=== PATIENT | male | born 1955 | race Caucasian/White ===

== ENCOUNTER 2018-01-19 17:39 | Observation (INO) | payer OTHER ==
[2018-01-19] MEDS ORDERED: ONDANSETRON 4 MG/2 ML VIAL IVP ONE (17:59)
[2018-01-19] MEDS ORDERED: MECLIZINE HCL 25 MG TAB PO ONE (17:59)
[2018-01-19] MEDS ORDERED: NS 500 ML IV ONE (17:59)
--- NOTE | 2018-01-19 18:00 | CPEKG ---
Heart Rate: 61 RR Interval: 984 P-R Interval: 156 QRSD Interval: 100 QT Interval: 404 QTC Interval: 407 P Gila: 56 QRS Gila: -9 T Wave Gila: 41 EKG Severity - BORDERLINE ECG - EKG Impression: SINUS RHYTHM EKG Impression: PROBABLE LEFT ATRIAL ABNORMALITY Electronically Signed By: Oneil Choi 19-Jan-2018 18:58:14
[2018-01-19 18:14] LABS: PLATELET COUNT 261 10^3/uL (150-400)
--- NOTE | 2018-01-19 18:15 | EDPHY ---
H & P Time Seen by Provider: 01/19/18 17:42 HPI/ROS: HPI Vertigo. 62-year-old male by private vehicle with his . This patient reports onset of vertigo which she describes as difficulty walking, motion where there is no motion, worse with head movement at times but not always since 9:00 a.m. This morning. No history of fall or trauma. No other complaints. ROS: Constitutional: No fever, no chills. As above. Eyes: No discharge. No changes in vision. ENT: No sore throat. No nasal congestion or rhinorrhea. No tinnitus. No hearing changes. Respiratory: No cough. No shortness of breath. Cardiac: No chest pain, no palpitations. Gastrointestinal: No abdominal pain, no vomiting, no diarrhea. Genitourinary: No hematuria. No dysuria or increased frequency with urination. Musculoskeletal: No back pain. No neck pain. No myalgias or arthralgias. Skin: No rashes. Neurological: No headache. No focal weakness or altered sensation. As above. Past medical history: Denies any significant past medical history. No prescription medications. Social history: Nonsmoker. No alcohol. Here with family. Denies drugs. Physical Exam: General Appearance: Alert, no distress. This patient is responding to questions appropriately and in full sentences. This patient appears well- hydrated and well-nourished. Eyes: Pupils equal and round no pallor or injection. No lid edema, erythema or injection. Uni directional horizontal nystagmus noted. ENT, Mouth: Mucous membranes are moist. The pharyngeal tissues are unremarkable. No edema or swelling. No asymmetry suggestive of abscess. No erythema or exudates. No tongue lacerations or abrasions. External auditory canals and tympanic membranes are normal bilaterally on speculum exam. Respiratory: There are no retractions, lungs are clear to auscultation with good air movement bilaterally. Cardiovascular: Regular rate and rhythm. No murmur. Gastrointestinal: Abdomen is soft and nontender, no masses, bowel sounds normal. No focal tenderness at McBurney's point. No Romo sign. Neurological: Motor sensory function is grossly intact. Cranial nerves are normal. Unsteady gait, he this to the right. Indeterminate head impulse test testing. His symptoms do not worsen significantly with head movement. Skin: Warm and dry, no rashes. Musculoskeletal: Neck is supple and nontender. No pain on flexion of his neck. Extremities are symmetrical. All joints range without pain or impingement. Psychiatric: No agitation. No depression. Database: EKG: EKG time is 5:58 p.m.; EKG shows a narrow complex normal sinus rhythm with a ventricular rate of 61. The MT, QRS, QT intervals are within normal limits. There are no ST-T wave changes indicative of ischemic or injury pattern. No evidence of right heart strain. Interpreted by me. Imaging: MRI with and without contrast of brain: Negative. Results were discussed with staff radiologist Dr. Vega James. Procedures: Emergency department course: Vital signs reviewed. He is moderately hypertensive. Vital signs otherwise normal. His physical examination is not clearly consistent with a peripheral etiology. MRI imaging of the brain with and without contrast will be obtained. We will be given 25 mg of oral meclizine initially. 8:20 p.m., patient re-evaluated. Resting comfortably at this time. Reading. He states that he feels better. Results of his MRI discussed with him. 8:45 p.m., the patient was being prepared for discharge. He became very vertiginous again. He does not feel comfortable going home at this time. He declines benzodiazepines. He is having a difficult time ambulating. Plan will now be to admit him to the hospitalist service for observation overnight. He is currently here by himself. Hospitalist paged. 8:50 p.m., spoke with hospitalist. Case discussed in detail. Patient admitted observation status overnight to the hospitalist service in stable condition. Differential Diagnosis: The differential diagnosis on this patient includes but is not limited to benign positional vertigo, vestibular neuritis, cerebellar stroke. This represents a partial list of diagnoses considered. These considerations are based on history, physical exam, past history, reassessment and diagnostic testing. Smoking Status: Never smoked Constitutional: Initial Vital Signs Temperature (C) 37 C 01/19/18 17:46 Heart Rate 60 01/19/18 17:46 Respiratory Rate 18 18 17:46 Blood Pressure 162/84 H 18 17:46 O2 Sat (%) 95 01/19/18 17:46 O2 Delivery Mode Room Air Allergies/Adverse Reactions: No Known Allergies Allergy (Verified 01/19/18 17:46) Home Medications: Medication Instructions Recorded NK [No Known Home Meds] 01/19/18 Medical Decision Making - Diagnostics Imaging Results: Imaging Impressions Brain MRI 01/19/18 18:05 Impression: Negative. No ischemia, intracranial hemorrhage, mass, or white matter disease. Findings discussed with Emergency Department physician, Dr. Eva Schwab on January 19, 2018 at 1955 hours. - Data Points Laboratory Results: Laboratory Results 01/19/18 18:00 01/19/18 18:00 01/19/18 01/19/18 18:00 18:00 WBC 9.07 10^3/uL 10^3/uL (3.80-9.50) RBC 4.82 10^6/uL 10^6/uL (4.40-6.38) Hgb 15.1 g/dL g/dL (13.7-17.5) Hct 43.2 % % (40.0-51.0) MCV 89.6 fL fL (81.5-99.8) MCH 31.3 pg pg (27.9-34.1) MCHC 35.0 g/dL g/dL (32.4-36.7) RDW 13.9 % % (11.5-15.2) Plt Count 261 10^3/uL 10^3/uL (150-400) MPV 9.6 fL fL (8.7-11.7) Neut % (Auto) 84.2 % H % (39.3-74.2) Lymph % (Auto) 11.0 % L % (15.0-45.0) [place] % (Auto) 4.4 % L % (4.5-13.0) Eos % (Auto) 0.0 % L % (0.6-7.6) Baso % (Auto) 0.2 % L % (0.3-1.7) Nucleat RBC Rel Count 0.0 % % (0.0-0.2) Absolute Neuts (auto) 7.63 10^3/uL H 10^3/uL (1.70-6.50) Absolute Lymphs (auto) 1.00 10^3/uL 10^3/uL (1.00-3.00) Absolute Monos (auto) 0.40 10^3/uL 10^3/uL (0.30-0.80) Absolute Eos (auto) 0.00 10^3/uL L 10^3/uL (0.03-0.40) Absolute Basos (auto) 0.02 10^3/uL 10^3/uL (0.02-0.10) Absolute Nucleated RBC 0.00 10^3/uL 10^3/uL (0-0.01) Immature Gran % 0.2 % % (0.0-1.1) Immature Gran # 0.02 10^3/uL 10^3/uL (0.00-0.10) Sodium 141 mEq/L mEq/L (135-145) Potassium 4.3 mEq/L mEq/L (3.3-5.0) Chloride 106 mEq/L mEq/L (97-110) Carbon Dioxide 24 mEq/l mEq/l (22-31) Anion Gap 11 mEq/L mEq/L (8-16) BUN 22 mg/dL mg/dL (7-23) Creatinine 0.7 mg/dL mg/dL (0.7-1.3) Estimated GFR > 60 Glucose 125 mg/dL H mg/dL (70-100) Calcium 9.5 mg/dL mg/dL (8.5-10.4) Medications Given: Discontinued Medications Sodium Chloride (Ns) 500 mls @ 0 mls/hr IV ONCE ONE; Wide Open PRN Reason: Protocol Stop: 01/19/18 18:00 Last Admin: 01/19/18 18:09 Dose: 500 mls Meclizine HCl (Meclizine Hcl) 25 mg PO EDNOW ONE Stop: 01/19/18 18:00 Last Admin: 01/19/18 18:09 Dose: 25 mg Ondansetron HCl (Zofran) 4 mg IVP EDNOW ONE Stop: 01/19/18 18:00 Last Admin: 01/19/18 18:09 Dose: 4 mg Departure - Departure Disposition: [facility] In[facility] Acute Clinical Impression: Vertigo Referrals: MICHAEL BERNARD [Primary Care Provider] - As per Instructions
[2018-01-19] MEDS ORDERED: GADOBUTROL 10 ML VIAL IVP ONE (18:42)
[2018-01-19] MEDS ORDERED: ACETAMINOPHEN 325 MG TAB PO PRN (21:44)
[2018-01-19] MEDS ORDERED: ONDANSETRON 4 MG/2 ML VIAL IVP PRN (21:44)
[2018-01-19] MEDS ORDERED: ONDANSETRON DISINTEGRATING 4 MG TAB PO PRN (21:44)
[2018-01-19] MEDS ORDERED: MECLIZINE HCL 25 MG TAB PO PRN (21:46)
--- NOTE | 2018-01-19 21:50 | PDGENHP ---
History and Physical - Chief Complaint dizzyness - History of Present Illness 62 yo male who presented to the ED with abrupt onset of dizziness this morning. He describes difficulty walking, motion where there is no motion, worse with head movement at times but not always since 9:00 a.m. This morning. No history of fall or trauma. No other complaints. No URI sx's. He reports a hx of previous sx's in the past but does not provide further details. an MRI of the brain is unremarkable. He has declined benzo's The E.D. staff had a plan for discharge but he became very symptomatic again and he is being admitted for further w/u and mgmt. He denies any neck pain, fever, n/v, vision loss. Past medical history: Denies any significant past medical history. No prescription medications. Social history: Nonsmoker. No alcohol. Denies drugs. History Information - Allergies/Home Medication List Allergies/Adverse Reactions: No Known Allergies Allergy (Verified 01/19/18 17:46) Home Medications: NK [No Known Home Meds] 01/19/18 [Last Taken Unknown] I have personally reviewed and updated: medical history, social history - Social History Smoking Status: Never smoked Review of Systems Review of Systems: ROS: 10pt was reviewed & negative except for what was stated in HPI & below Physical Exam Physical Exam: Temp Pulse Resp BP Pulse Ox 36.9 C 65 18 120/70 96 01/19/18 21:40 01/19/18 21:40 01/19/18 21:40 01/19/18 21:40 01/19/18 21:40 Constitutional: no apparent distress, not in pain Eyes: PERRL, EOMI Ears, Nose, Mouth, Throat: moist mucous membranes, hearing normal, ears appear normal Cardiovascular: regular rate and rhythym, No edema Respiratory: no respiratory distress, no rales or rhonchi, clear to auscultation Gastrointestinal: normoactive bowel sounds, soft, non-tender abdomen, no palpable masses Genitourinary: no bladder fullness Skin: warm Musculoskeletal: full muscle strength Neurologic: AAOx3, CN II-XII Intact, other (left and right nystagmus), No weakness, No facial droop Psychiatric: interacting appropriately, not anxious Lymph, Heme, Immunologic: No petechiae Lab Data & Imaging Review 01/19/18 18:00 01/19/18 18:00 WBC 9.07 10^3/uL (3.80-9.50) 01/19/18 18:00 RBC 4.82 10^6/uL (4.40-6.38) 01/19/18 18:00 Hgb 15.1 g/dL (13.7-17.5) 01/19/18 18:00 Hct 43.2 % (40.0-51.0) 01/19/18 18:00 MCV 89.6 fL (81.5-99.8) 01/19/18 18:00 MCH 31.3 pg (27.9-34.1) 01/19/18 18:00 MCHC 35.0 g/dL (32.4-36.7) 01/19/18 18:00 RDW 13.9 % (11.5-15.2) 01/19/18 18:00 Plt Count 261 10^3/uL (150-400) 01/19/18 18:00 MPV 9.6 fL (8.7-11.7) 01/19/18 18:00 Neut % (Auto) 84.2 % (39.3-74.2) H 01/19/18 18:00 Lymph % (Auto) 11.0 % (15.0-45.0) L 01/19/18 18:00 [place] % (Auto) 4.4 % (4.5-13.0) L 01/19/18 18:00 Eos % (Auto) 0.0 % (0.6-7.6) L 01/19/18 18:00 Baso % (Auto) 0.2 % (0.3-1.7) L 01/19/18 18:00 Nucleat RBC Rel Count 0.0 % (0.0-0.2) 01/19/18 18:00 Absolute Neuts (auto) 7.63 10^3/uL (1.70-6.50) H 01/19/18 18:00 Absolute Lymphs (auto) 1.00 10^3/uL (1.00-3.00) 01/19/18 18:00 Absolute Monos (auto) 0.40 10^3/uL (0.30-0.80) 05/17/18 18:00 Absolute Eos (auto) 0.00 10^3/uL (0.03-0.40) L 01/19/18 18:00 Absolute Basos (auto) 0.02 10^3/uL (0.02-0.10) 01/19/18 18:00 Absolute Nucleated RBC 0.00 10^3/uL (0-0.01) 18 18:00 Immature Gran % 0.2 % (0.0-1.1) 01/19/18 18:00 Immature Gran # 0.02 10^3/uL (0.00-0.10) 01/19/18 18:00 Sodium 141 mEq/L (135-145) 01/19/18 18:00 Potassium 4.3 mEq/L (3.3-5.0) 01/19/18 18:00 Chloride 106 mEq/L (97-110) 01/19/18 18:00 Carbon Dioxide 24 mEq/l (22-31) 01/19/18 18:00 Anion Gap 11 mEq/L (8-16) 01/19/18 18:00 BUN 22 mg/dL (7-23) 01/19/18 18:00 Creatinine 0.7 mg/dL (0.7-1.3) 01/19/18 18:00 Estimated GFR > 60 01/19/18 18:00 Glucose 125 mg/dL (70-100) H 18 18:00 Calcium 9.5 mg/dL (8.5-10.4) 01/19/18 18:00 Assessment & Plan Assessment: #Vertigo (Acute), likely BPV -I attempted modified Krystin maneuver w/o success -will admit observation and have PT evaluate and treat tomorrow -Meclizine as needed -Unfortunately I dont have an obvious etiology for why he has had an acute episode of Vertigo. We discussed treatment options and overnight observation but the patient remains frustrated that he has not found a reason for his Vertigo
[2018-01-20 04:35] LABS: PLATELET COUNT 215 10^3/uL (150-400)
[2018-01-20 09:04] VITALS: BP 118/77
--- NOTE | 2018-01-20 11:06 | ASMTLACE ---
CEC[facility] Length of stay for Answers: 1 day current admission Acuity / Level of Answers: No Care: Did the patient have an inpatient admission? # of Emergency department Answers: 1-2 visits in the last 6 months Score: 2 Date Signed: 01/20/2018 11:06 AM Electronically Signed By:Kendal Loya
--- NOTE | 2018-01-20 11:09 | ASMTCMCOM ---
CM Note CM Note Notes: Reviewed Pt's chart and discussed with nurse. Pt currently not in need of any d/c planning. CM available should needs arise. D/C Plan: Independent. Date Signed: 01/20/2018 11:08 AM Electronically Signed By:Kendal Loya
--- NOTE | 2018-01-20 13:53 | GDS ---
[f rep st] DISCHARGE SUMMARY DISCHARGE DIAGNOSIS: Vertigo. HISTORY OF PRESENT ILLNESS: The patient is a 62-year-old male who presented to the emergency room wi complaints of sudden onset of dizziness. He was evaluated by MRI and noted to be likely diagnosed with vertigo. His symptoms are significantly improved. He is able to ambulate independently. He i s tolerating a regular diet. His MRI was benign. He did receive physical therapy evaluation during this hospitalization. He was deemed safe to be discharged home, with followup in the outpatient sett ing. DISCHARGE MEDICATIONS: Please refer to EMR form. I have not discontinued the patient's previously p rescribed home medications. FOLLOWUP: Followup will be with his primary care physician, Dr. Monster Polk. /[id number]/MODL
== END 2018-01-20 12:50 | disposition home or self-care (01) ==
LOC: F3E 21:45
PROVIDERS: ADMIT Family Medicine; ATTEND Internal Medicine
DX: R42 Dizziness and giddiness (principal)
CPT/HCPCS: 70553; 93005; 97112; 97161; 97530; G0378; A9585; J2405